=== PATIENT | male | born 1950 | race Caucasian/White ===

== ENCOUNTER → 2024-04-08 | Outpatient (CLI) | payer MEDICARE, BC, SELFPAY ==
[2024-04-08 17:10] LABS: Partial Thromboplastin Time 25.4 Seconds (22.0-36.0); Prothrombin Time 11.2 Seconds (9.0-12.2)
== END | disposition home or self-care (01) ==
LOC: COPL 15:54
PROVIDERS: PCP Internal Medicine; Referring Provider Internal Medicine; Visit Provider Internal Medicine
DX: Z01.812 Encounter for preprocedural laboratory examination (principal)
CPT/HCPCS: 36415; 85610; 85730

== ENCOUNTER → 2024-06-14 | Outpatient (CLI) | payer MEDICARE, BC, SELFPAY ==
--- NOTE | 2024-06-14 15:38 | XR_ITS ---
Examination: Knee bilateral, 4 views Technique: Knee AP, lateral, The total 4 views Date and time of exam: June 14, 2024 1602 hours INDICATIONS: Bilateral knee pain several months. 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
--- NOTE | 2024-06-14 15:38 | XR_ITS ---
Examination: Bilateral knees, standing AP single view Technique: Standing AP bilateral knees, standing single view Exam date and time: June 14, 2024 1602 hours INDICATIONS: Bilateral knee pain several months. FINDINGS: Moderate osteopenia Moderate to advanced narrowing medial joint spaces No fracture or dislocation Faint meniscus calcification IMPRESSION: Bilateral moderate to advanced narrowing medial joint spaces
--- NOTE | 2024-06-14 15:38 | XR_ITS ---
Examination: AP pelvis 2 views TECHNIQUE: AP supine pelvis hips in neutral position, AP pelvis hips abduction position INDICATIONS: Pelvic pain several months. FINDINGS: Partial visualization orthopedic hardware involving lower lumbar spine, fixation screws extending into the pelvis Moderate bilateral hip osteoarthritis No right or left hip fracture or dislocation Bones of the pelvis intact Moderate osteopenia IMPRESSION: Moderate bilateral hip osteoarthritis
== END | disposition home or self-care (01) ==
PROVIDERS: PCP Internal Medicine; Referring Provider Orthopaedic Surgery; Visit Provider Orthopaedic Surgery
DX: M17.0 Bilateral primary osteoarthritis of knee (principal); M25.862 Other specified joint disorders, left knee; M25.861 Other specified joint disorders, right knee; M16.0 Bilateral primary osteoarthritis of hip
CPT/HCPCS: 72170; 73560; 73565

== ENCOUNTER → 2024-08-05 | Outpatient (CLI) | payer MEDICARE, BC, SELFPAY ==
--- NOTE | 2024-08-05 14:07 | XR_ITS ---
Examination: Thoracic spine 3 views Technique one AP lateral coned lateral upper dorsal spine 3 views Exam date and time: August 05, 2024 1426 hrs. Comparison October 21, 2023 Indications: Back surgery done one year ago patient fell 10 days ago with injury to the back, back pain. Findings: Transpedicular lower thoracic stabilization Moderate diffuse thoracic disc narrowing No acute thoracic fracture Impression: No acute thoracic fracture
--- NOTE | 2024-08-05 14:07 | XR_ITS ---
Examination: Lumbar spine, 5 views Technique: Lumbar spine AP, lateral, coned lateral lower lumbar spine, bilateral obliques 5 views Exam date and time: August 05, 2024 1415 hrs. Indications: Back surgery one year ago, patient fell 10 days ago with injury to lower back, lower back pain. Findings: Severe osteopenia Extensive thoracolumbar sacral stabilization Disc spacer at L3-L4 No acute lumbar fracture Impression: No acute lumbar fracture
== END | disposition home or self-care (01) ==
LOC: CDIM 13:58
PROVIDERS: PCP Internal Medicine; Referring Provider Orthopaedic Surgery; Visit Provider Orthopaedic Surgery
DX: S39.92XA Unspecified injury of lower back, initial encounter (principal); S29.8XXA Other specified injuries of thorax, initial encounter; W19.XXXA Unspecified fall, initial encounter
CPT/HCPCS: 72070; 72110

== ENCOUNTER → 2024-09-10 | Outpatient (CLI) | payer MEDICARE, BC, SELFPAY ==
[2024-09-10 12:48] LABS: Collection Type, Urine Clean Catch; Squamous Epithelial Cell,Urine 0 /hpf (0-5)
[2024-09-10 13:30] LABS: Basophils % (Auto) 0 % (0-2.5); Eosinophils # (Auto) 0.1 Thou/mm3 (0.0-0.5); Eosinophils % (Auto) 2 % (0-10); Hematocrit 36.8 % (41.0-53.0); Hemoglobin 12.4 g/dL (13.5-16.0); Immature Granulocytes % (Auto) 0 % (0-0); Immature Granulocytes Auto 0.02 Thou/mm3 (0.00-0.00); Lymphocytes % (Auto) 18 % (10-50); Mean Corpuscular HGB Conc 33.7 g/dl (31.0-37.0); Mean Corpuscular Hemoglobin 30.5 pg (25.0-35.0); Mean Corpuscular Volume 91 fL (80-100); Monocytes # (Auto) 0.6 Thou/mm3 (0.0-0.8); Monocytes % (Auto) 11 % (0-12); Neutrophils # (Auto) 3.6 Thou/mm3 (1.8-7.7); Neutrophils % (Auto) 68 % (37-80); Nucleated Red Blood Cell % 0 /100 WBC (0); Platelet Count 185 Thou/mm3 (140-440); RDW Standard Deviation 49.6 fL (35.1-43.9); Red Blood Count 4.06 Miln/mm3 (4.50-5.90); White Blood Count 5.2 Thou/mm3 (3.8-10.6)
[2024-09-10 13:41] LABS: Bacteria,Urine Rare; Bilirubin,Urine Negative (Negative); Blood,Urine Negative (Negative); Clarity,Urine Clear (Clear/Hazy); Color,Urine Lt-Yellow (Lt Yel-Yel); Glucose, Urine Negative (Negative); Ketones,Urine Negative (Negative); Leukocyte Esterase,Urine Negative (Negative); Nitrite,Urine Negative (Negative); Protein,Urine Trace (Neg - Trace); RBC,Urine 2 /hpf (0-3); Specific Gravity,Urine 1.027 (1.001-1.035); Urobilinogen,Urine Negative mg/dL (0.0-1.0); WBC,Urine < 1 /hpf (0-5)
[2024-09-10 13:44] LABS: Parathyroid Hormone Intact 72.5 pg/ml (18.5-88.0)
[2024-09-10 13:45] LABS: Creatinine MALB Rnd Ur 121 mg/dL (30-125); Microalbumin Creat Ratio 16 mg/gCrea (<30); Microalbumin, Random Urine 19 mg/L (0-300)
[2024-09-10 13:46] LABS: Alanine Aminotransferase 71 U/L (10-49); Albumin, Serum 4.2 gm/dL (3.4-4.8); Albumin/Globulin Ratio 1.8 (1.2-2.2); Alkaline Phosphatase 95 U/L (46-116); Anion Gap 6 (7-16); Aspartate Amino Transferase 24 U/L (0-34); BUN/Creatinine Ratio 17 Ratio (12-20); Bilirubin,Total 0.9 mg/dL (0.3-1.2); Blood Urea Nitrogen 22 mg/dL (9-23); Carbon Dioxide 27.3 mMol/L (20.0-31.0); Cardiac Risk Estimate 3.1 RATIO (4.0-6.7); Chloride 108 mMol/L (98-107); Cholesterol 180 mg/dL (132-200); Creatinine (Component) 1.3 mg/dL (0.6-1.3); Globulin 2.4 gm/dL (2.3-3.5); Glucose 99 mg/dL (74-106); HDL Cholesterol 59 mg/dL (40-60); LDL Cholesterol,Calculated 101 mg/dL (0-130); Osmolality,Calculated 284 (275-295); Potassium 4.7 mMol/L (3.4-5.1); Sodium 141 mMol/L (136-145); Total Protein 6.6 gm/dL (5.7-8.2); Triglycerides 99 mg/dL (30-150); eGFR 58 See Note
== END | disposition home or self-care (01) ==
LOC: COPL 12:15
PROVIDERS: PCP Internal Medicine; Referring Provider Internal Medicine; Visit Provider Internal Medicine
DX: I12.9 Hypertensive chronic kidney disease with stage 1 through stage 4 chronic kidney disease, or unspecified chronic kidney disease (principal); E78.5 Hyperlipidemia, unspecified; N18.30 Chronic kidney disease, stage 3 unspecified
CPT/HCPCS: 36415; 80053; 80061; 81001; 82043; 82570; 83970; 85025

== ENCOUNTER → 2024-10-06 | Outpatient (CLI) | payer OTHER, SELFPAY ==
--- NOTE | 2024-10-06 15:09 | XR_ITS ---
Examination: Scoliosis survey 4, views. Technique: AP standing thoracic, AP standing lumbar spine, lateral thoracic lateral lumbar film 4 views Exam date and time: October 06, 2024 at 1313 hours Findings: Thoracolumbar dextroscoliosis 6 degrees Severe osteopenia Transpedicular stabilization procedure extending from the lower dorsal spine to the iliac bones with fusions involving the lower 3 lumbar vertebral bodies Alignment is satisfactory and stable compared with August 05, 2024 Mild kyphosis dorsal spine Moderate diffuse thoracic disc narrowing IMPRESSION: Extensive thoracolumbar stabilization procedure Mild kyphosis dorsal spine Moderate diffuse thoracic degenerative disc disease
== END | disposition home or self-care (01) ==
PROVIDERS: PCP Internal Medicine; Referring Provider Neurological Surgery; Visit Provider Neurological Surgery
DX: M40.299 Other kyphosis, site unspecified (principal); M51.34 Other intervertebral disc degeneration, thoracic region
CPT/HCPCS: 72082

== ENCOUNTER → 2024-11-11 | Outpatient (CLI) | payer MEDICARE, BC, SELFPAY ==
[2024-11-11 16:49] LABS: Alanine Aminotransferase 26 U/L (10-49); Albumin, Serum 4.4 gm/dL (3.4-4.8); Alkaline Phosphatase 68 U/L (46-116); Anion Gap 9 (7-16); Aspartate Amino Transferase 20 U/L (0-34); BUN/Creatinine Ratio 18 Ratio (12-20); Bilirubin,Direct 0.1 mg/dL (0.0-0.3); Bilirubin,Total 0.6 mg/dL (0.3-1.2); Blood Urea Nitrogen 25 mg/dL (9-23); Calcium 8.8 mg/dL (8.3-10.6); Carbon Dioxide 25.7 mMol/L (20.0-31.0); Chloride 104 mMol/L (98-107); Creatinine (Component) 1.4 mg/dL (0.6-1.3); Glucose 102 mg/dL (74-106); Osmolality,Calculated 281 (275-295); Phosphorous 3.8 mg/dL (2.4-5.1); Potassium 4.4 mMol/L (3.4-5.1); Sodium 139 mMol/L (136-145); Total Protein 6.5 gm/dL (5.7-8.2); eGFR 53 See Note
== END | disposition home or self-care (01) ==
LOC: COPL 15:30
PROVIDERS: PCP Internal Medicine; Referring Provider Internal Medicine; Visit Provider Internal Medicine
DX: I12.9 Hypertensive chronic kidney disease with stage 1 through stage 4 chronic kidney disease, or unspecified chronic kidney disease (principal); N18.30 Chronic kidney disease, stage 3 unspecified
CPT/HCPCS: 36415; 80048; 80069; 80076; 84100

== ENCOUNTER 2024-11-18 21:11 | Emergency (ER) | payer MEDICARE, BC, SELFPAY ==
[2024-11-18 21:59] VITALS: BP 171/93; PULSE 90; RESP 18; TEMP 36.6; O2SAT 95
--- NOTE | 2024-11-18 22:10 | XR_ITS ---
Examination: Forearm, left, 2 views. Technique: Forearm, AP, lateral 2 views Date and time of exam: November 18, 2024 1012 hours INDICATIONS: Patient fell today with injury to the elbow, elbow pain. FINDINGS: No acute fracture No dislocation No foreign body IMPRESSION: No acute fracture
--- NOTE | 2024-11-18 22:10 | XR_ITS ---
Examination: Wrist, left 3 views Technique: Wrist AP, oblique, lateral 3 views Date and time of exam: November 18, 2024 1012 hours INDICATIONS: Injury to the wrist today, wrist pain FINDINGS: On the oblique view small bone density which is dorsal to the probable distal carpal row It actually is better visualized on the forearm films IMPRESSION: Recommend CT scan wrist follow-up to exclude small chip fracture dorsal to the distal carpal row versus base of one of the metacarpals
--- NOTE | 2024-11-18 22:10 | XR_ITS ---
Examination: Left elbow 3 views Technique: Elbow AP, oblique, lateral 3 views Exam date and time: November 08, 2024 1012 hours INDICATIONS: Patient fell today with injury to the elbow, elbow pain. FINDINGS: No elbow fracture or dislocation. 12 mm posterior bony olecranon spur IMPRESSION: No elbow fracture or dislocation.
--- NOTE | 2024-11-18 22:10 | XR_ITS ---
Examination: Hand, left 3 views Technique: Hand AP, oblique, lateral 3 views Date and time of exam: November 18, 2024 1012 hours INDICATIONS: Patient fell today with injured the hand, hand pain FINDINGS: On the lateral view small chip fracture off the base of one of the metacarpals or proximal carpal row with associated soft tissue swelling Digits appear intact IMPRESSION: Recommend CT scan wrist follow-up to exclude small chip fracture off the dorsal surface either of the distal carpal row or base of the metacarpals
--- NOTE | 2024-11-18 22:55 | XR_ITS ---
Examination: CT left breast, without contrast. 2-D sagittal reconstructions. 2-D coronal reconstructions. 3-D reconstructions. Date and time of exam:08/19/2024 0021 hours INDICATIONS: Patient fell with injury to the left wrist left breast pain CTDI: vol (mGy):6.3 DLP: (mGycm):154 Technique: Multiple 1.25 mm axial sections of the left wrist without intravenous contrast have been obtained. 2-D sagittal and coronal reconstructions have been obtained. 3-D reconstructions have been obtained. Low dose protocols were performed. One or more of the following dose reduction techniques were used; automated exposure control, adjustment of the mA and/or KV according to patient size, use of iterative reconstruction technique. Findings: Acute fracture of the dorsal surface of the hamate, axial image 33, a 7 mm bone fragment which was depicted on the plain films The lunate is angulated dorsally Fracture of the triquetrum, old No scapholunate disassociation IMPRESSION: Acute fracture dorsal surface of the hamate
--- NOTE | 2024-11-18 22:55 | XR_ITS ---
Examination: CT left elbow, without contrast. 2-D sagittal reconstructions. 2-D coronal reconstructions. 3-D reconstructions. Date and time of exam:November 19, 2024 at 0017 hours INDICATIONS: Patient fell today with injury of the elbow, elbow pain CTDI: vol (mGy):4 DLP: (mGycm):73.4 Technique: Multiple 1.25 mm axial sections of the left elbow without intravenous contrast have been obtained. 2-D sagittal and coronal reconstructions have been obtained. 3-D reconstructions have been obtained. Low dose protocols were performed. One or more of the following dose reduction techniques were used; automated exposure control, adjustment of the mA and/or KV according to patient size, use of iterative reconstruction technique. Findings: [id number] diffuse elbow osteoarthritis Radial head neck proximal radius, ulna including on relapse intact Distal humerus including condyles intact IMPRESSION: No acute fracture, no dislocation
[2024-11-18] MEDS: HYDROcodone/APAP 5/325 TABLET 1 TAB PO (23:10)
[2024-11-19 01:17] VITALS: RESP 18
--- NOTE | 2024-11-19 02:23 | PRELIM_ITS ---
CT left elbow without intravenous contrast (axial sections with sagittal and coronal reformats) November 19, 2024 0017 hours Clinical History: Fall, XR neg Comparison: No prior studies available for comparison Findings: No evidence of acute fracture or dislocation is noted Mild degenerative changes are noted in the elbow joint in the form of multiple small marginal osteophytes of the distal humerus and olecranon process of ulna. The visualized joints are unremarkable. No significant joint effusion is seen. The visualized muscles are unremarkable with maintained intermuscular fat planes. Mild soft tissue swelling is noted in the posterior elbow region. The other visualized subcutaneous soft tissues are unremarkable. Impression: No evidence of acute fracture or dislocation. No evidence of elbow joint effusion. Mild osteoarthritis of the elbow joint Mild soft tissues swelling in the posterior elbow region. Report Electronically Signed By: Donnell Santa 11/19/2024 2:22:53 AM [EST]
--- NOTE | 2024-11-19 02:24 | PRELIM_ITS ---
CT left wrist without intravenous contrast (axial sections with sagittal and coronal reformats) November 19, 2024 0021 hours Clinical History: Fall, XR neg Comparison: No prior study is available for compression Findings: Acute displaced fracture of the posterior aspect of the hamate is noted Chronic fracture of the posterior aspect of the triquetrium is noted The visualized bones are intact. Several degenerative cysts are noted in the lunate and triquetrum. There is dorsal tilt of the lunate. The capitate is lined up with the lunate. Scapholunate interval is within normal limits. No significant joint effusion is seen. The visualized muscles are unremarkable with maintained intermuscular fat planes. There is mild superficial soft tissue swelling of the wrist. Impression: Acute displaced fracture of the posterior aspect of the hamate. CT features of dorsal intercalated segment instability. Other findings as described above Report Electronically Signed By: Donnell Santa 11/19/2024 2:22:57 AM [EST]
--- NOTE | 2024-11-19 04:37 | PD.EDUPEX ---
Upper Extremity Injury RME/HPI General Chief Complaint: Fall Stated Complaint: FELL, LEFT ARM INJURY Time Seen by Provider: 11/18/24 22:10 Arrival date/time: 11/18/24 21:11 74M with history of HTN and GERD presents to ED with L forearm/wrist/hamd pain after he tripped and fell. Patient denies hitting his head. Limitations: no limitations Related Data Home Medications ?Medication ?Instructions ?Recorded ?Confirmed gabapentin 600 mg tablet 600 mg PO QID PRN Pain 03/02/18 09/30/22 hydrocodone 10 mg-acetaminophen 1 tab PO QID 10/10/19 02/11/22 325 mg tablet tamsulosin 0.4 mg capsule 1 mg PO QDAY 03/21/21 09/30/22 allopurinol 100 mg tablet 100 mg PO DAILY 08/21/21 09/30/22 metoprolol succinate 50 mg 50 mg PO BID 02/11/22 09/30/22 tablet,extended release 24 hr morphine 30 mg tablet,extended 30 mg PO BID 02/11/22 09/30/22 release olmesartan 40 1 tab PO QAM 02/11/22 09/30/22 mg-hydrochlorothiazide 12.5 mg tablet pantoprazole 40 mg tablet,delayed 1 tab PO QAM 02/11/22 09/30/22 release ropinirole 0.5 mg tablet 0.5 mg PO HS 02/11/22 09/30/22 methocarbamol 500 mg tablet 500 mg PO TID 09/30/22 09/30/22 Previous Rx's ?Medication ?Instructions ?Recorded finasteride 5 mg tablet 5 mg PO QDAY #30 tabs 10/01/22 Allergies Allergy/AdvReac Type Severity Reaction Status Date / Time No Known Allergies Allergy Verified 02/11/22 20:38 Review of Systems Review of Systems Systems Reviewed: All systems reviewed, normal except as documented Constitutional Constitutional: Reports system reviewed and no additional complaints, except as documented, Denies fever(s) and Denies headache(s) ENT Ears, Nose, Mouth, and Throat: Denies disequilibrium and Denies headache(s) Cardiovascular Cardiovascular: Reports system reviewed and no additional complaints, except as documented, Denies chest pain and Denies dyspnea Respiratory Respiratory: Reports system reviewed and no additional complaints, except as documented, Denies cough and Denies dyspnea Gastrointestinal Gastrointestinal: Reports system reviewed and no additional complaints, except as documented, Denies abdominal pain, Denies nausea and Denies vomiting Musculoskeletal Musculoskeletal: Reports as per HPI and Reports arthralgias Neurologic Neurologic: Reports system reviewed and no additional complaints, except as documented, Denies confusion, Denies disequilibrium and Denies headache(s) Psychiatric Psychiatric: Denies confusion Past Medical History Past Medical History NEUROLOGIC: Negative Seizures CARDIAC: Positive Cardiac Disorders and Hypertension; Negative Congestive Heart Failure, Cardiomyopathy or Hypotension RESPIRATORY: Positive Sleep Apnea; Negative Chronic Obstructive Pulmonary Disease (COPD) or Asthma GASTROINTESTINAL: Positive Gastrointestinal Disorders, Gall Bladder Disease and Gastroesophageal Reflux Disease GENITOURINARY: Negative Genitourinary Disorders or Renal Disease MUSCULOSKELETAL: Positive Musculoskeletal Disorders, Arthritis and Degenerative Disk Disease ENDOCRINE: Negative Diabetes Mellitus Type 1 or Diabetes Mellitus Type 2 HEMATOLOGIC: Negative Sickle Cell Disease OTHER HISTORY: Positive Falls and Chicken Pox; Negative Autoimmune Disease, Down Syndrome, Developmental Delay, Blood Transfusions, Blood Transfusion Reaction, Anesthesia Reactions, Organ Transplant or Cancer Family History FAMILY HISTORY: Positive Family Cardiac Disorders; Negative Family Cancer Surgical History SURGICAL: Positive Thyroidectomy and Tonsillectomy; Negative Abdominal Surgery or Organ Transplant Social History SMOKING STATUS: Never smoker SECOND HAND EXPOSURE: No SUBSTANCE USE: marijuana (Makes cannabis bud oil at home and takes a teaspoon before bed) ED Exam General Limitations: Present no limitations General appearance: Present alert and in no apparent distress Head Head exam: Present atraumatic Eye Eye exam: Present normal appearance, PERRL and EOMI ENT ENT exam: Present normal exam, normal oropharynx and mucous membranes moist Neck Neck exam: Present normal inspection, full ROM and trachea midline Chest Chest inspection: Present normal inspection and symmetric chest wall rise Respiratory Respiratory exam: Present normal lung sounds bilaterally Cardiovascular Cardiovascular exam: Present regular rate, normal rhythm and normal heart sounds Abdominal Exam Abdominal exam: Present soft and normal bowel sounds Expanded Upper Extremity Exam Elbow exam: Present full ROM (L) Forearm/Wrist exam: Present tenderness and swelling Hand exam: Present tenderness and swelling Back Exam Back exam: Present normal inspection and full ROM Neurological Exam Neurological exam: Present alert, oriented X3 and CN II-XII intact Psychiatric Psychiatric exam: Present normal affect and normal mood Skin Skin exam: Present warm, dry, intact and normal color Course Quality Measures none Orders Category Date Time Status Splint / Immobilizer STAT Care 11/19/24 00:[address] elbow LT wo con Stat Exams 11/18/24 22:[address] wrist LT wo con Stat Exams 11/18/24 22:55 Taken XR elbow comp LT min 3V Stat Exams 11/18/24 22:10 Completed XR forearm LT 2V Stat Exams 11/18/24 22:10 Completed XR hand comp LT min 3V Stat Exams 11/18/24 22:10 Completed XR wrist comp LT min 3V Stat Exams 11/18/24 22:10 Completed HYDROcodone*/APAP 5/325 [[place] 5/325] Med 11/18/24 22:11 Discontinued 1 tab PO X1 ONE Vital Signs Vital signs: Vital Signs Temperature 98 F 11/18/24 21:59 Pulse Rate 90 11/18/24 21:59 Respiratory Rate 18 11/18/24 21:59 Blood Pressure 171/93 H 11/18/24 21:59 Pulse Oximetry (%) 95 11/18/24 21:59 Oxygen Delivery Method Room Air 11/18/24 21:59 O2 at 95% on RA and WNLs Extremity Injury MDM Narrative MDM Narrative:: 74M with history of HTN and GERD presents to ED with L forearm/wrist/hamd pain after he tripped and fell. Patient denies hitting his head. Physical exam reveals L forearm, wrist, and hand tenderness, worse at wrist. Elbow ROM intact. ROM of wrist somewhat limited. Patient is afebrile, calm, and alert. XR equivocal. Patient had CT done but did not want to wait for results since he's going to call Dr. Saavedra in AM anyway. Splint/sling done. CT revealed displaced hamate fracture. Patient data External records reviewed:: [facility] previous records Clinical information provided by:: patient Social determinants that could affect healthcare access:: none Patient has the following chronic illnesses:: HTN and GERD How is presenting disease/condition affected by chronic disease/condition?: uneffected by Evaluation data The following diagnostics were reviewed and interpreted by me:: radiology exam(s) Lab and/or radiology exams considered but not ordered:: ordered Interpretation Summary: above Medications / Prescriptions Medications or Prescriptions considered but not ordered:: ordered Medication administrations:: Medication Administration History Discontinued Medications Hydrocodone Bitart/Acetaminophen (Hydrocodone/Apap 5/325 Tablet) 1 tab PO X1 ONE Stop: 11/18/24 22:12 Last Admin: 11/18/24 23:10 Dose: 1 tab Documented By: above Consultations Consultation(s) initiated? (list below): No Diagnosis Upper Extremity Injury Differential Diagnosis: sprain and strain of wrist, fracture of wrist, finger sprain, dislocation of finger, Colles' fracture, fracture of hand, dislocation of shoulder, fracture of humerus, fracture of clavicle and other (wrist pain) Most likely diagnosis given after review of the tests above:: wrist pain Admission Indicated Admission indicated?: not indicated Admission Request Was there a request for admission?: No Disposition Plan Disposition Plan: Discharge Discharge Attestation Discharge Attestation: The patient and all family members were given an opportunity to ask questions and understood the discharge instructions. Discharge instructions specifically effects, indications for sooner follow up or return to the emergency department, and the expected course of current diagnosis. Patient condition: Stable Discharge Plan Plan Patient Disposition: HOME (Self Care) Discharge Disposition comment: Stable Prescriptions/Referrals Prescriptions/Med Rec: No Action gabapentin 600 mg Tablet 600 mg PO QID PRN (Reason: Pain) hydrocodone-acetaminophen 10-325 mg tablet 1 tab PO QID Patient Comments: TAKE 1 TABLET BY MOUTH EVERY 6 HOURS NEEDED tamsulosin 0.4 mg capsule 1 mg PO QDAY allopurinol 100 mg tablet 100 mg PO DAILY Patient Comments: TAKE 1 TABLET BY MOUTH EVERY DAY morphine 30 mg tablet extended release 30 mg PO BID Patient Comments: TAKE 1 TABLET BY MOUTH EVERY 12 HOURS FOR 30 DAYS ropinirole 0.5 mg tablet 0.5 mg PO HS Patient Comments: TAKE 1 TABLET BY MOUTH EVERY DAY AT NIGHT metoprolol succinate 50 mg tablet extended release 24 hr 50 mg PO BID Patient Comments: TAKE 1 TABLET BY MOUTH TWICE A DAY olmesartan-hydrochlorothiazide 40-12.5 mg tablet 1 tab PO QAM Patient Comments: TAKE 1 TABLET BY MOUTH EVERY DAY pantoprazole 40 mg tablet,delayed release (DR/EC) 1 tab PO QAM Patient Comments: TAKE 1 TABLET BY MOUTH EVERY DAY methocarbamol 500 mg tablet 500 mg PO TID finasteride 5 mg Tablet 5 mg PO QDAY Qty: 30 0RF Referrals: Maikel Dale MD [Primary Care Provider] - In 1 week Problem List Clinical Impression: Acute wrist pain Patient/Caregiver Discharge Instructions Education Materials: Wrist Fracture, ED Contusion, Upper Extremity Additional Instructions: Please follow-up with PCP within 24-48 hours and return immediately if symptoms worsen. Follow-up with Dr. Saavedra in AM. Print Language: Thai Stand Alone Forms: Patient Portal Info Letter PA/PROGRESSIVE CARE MANAGER Supervising Physician PA/PROGRESSIVE CARE MANAGER Supervising Physician: Dr. Barry
== END 2024-11-19 01:18 | disposition home or self-care (01) ==
PROVIDERS: Emergency Provider Emergency Medicine; PCP Internal Medicine
DX: S62.142A Displaced fracture of body of hamate [unciform] bone, left wrist, initial encounter for closed fracture (principal); W01.0XXA Fall on same level from slipping, tripping and stumbling without subsequent striking against object, initial encounter
CPT/HCPCS: 29125; 73080; 73090; 73110; 73130; 73200; 99284; A9270

== ENCOUNTER → 2025-01-13 | Outpatient (CLI) | payer MEDICARE, BC, SELFPAY ==
--- NOTE | 2025-01-13 14:28 | XR_ITS ---
Exam: MRI knee without contrast, left Date and time of exam: September 13, 2024 1513 hours INDICATIONS: Left knee pain joint locking clicking stiffness swelling beginning 6 months ago Technique: Multiple axial, coronal, and sagittal sections on the knee have been obtained. T2-Weighted sagittal, fat-suppressed images, TR 3,500, TE 62, T2 weighted coronal fat-saturated images, TR 3,500, TE 62 Proton density sagittal sections, TR 1800, TE 31. T-1 weighted coronal images, TR 524, TE 13.0 Findings: Medial meniscus anterior horn intact. Medial meniscus, body oblique linear tear communicating inferior articular surface. Posterior horn medial meniscus horizontal linear tear communicating inner margin. Lateral meniscus anterior horn is intact Lateral meniscus, body is intact Posterior horn lateral meniscus is intact Anterior cruciate ligament moderate sprain Posterior cruciate ligament appears intact. Knee effusion is small. Quadriceps and patellar tendons appear intact. There is no evidence of tendinosis. Inflammatory change or fracture of Hoffa's fat pad is not seen. Medial patellar facet demonstrates moderate thinning. Lateral patellar facet cartilage demonstrates moderate thinning. Trochlear cartilage demonstrates moderate thinning. Marrow signal adequate. Medial collateral ligament appears intact. No meniscocapsular separation is seen. Illiotibial band and fibular collateral ligament are intact. Biceps femoris tendons appear intact. Medial femoral condylar articular cartilage demonstrates moderate thinning. Lateral femoral condylar articular cartilage demonstratesmoderate thinning. Tibial plateau cartilage demonstrates moderate thinning. Impression: Tears of the body and posterior horn medial meniscus Moderate strain anterior cruciate ligament
== END | disposition home or self-care (01) ==
LOC: SMRI 14:13
PROVIDERS: PCP Internal Medicine; Referring Provider Orthopaedic Surgery; Visit Provider Orthopaedic Surgery
DX: S83.242A Other tear of medial meniscus, current injury, left knee, initial encounter (principal); X58.XXXA Exposure to other specified factors, initial encounter
CPT/HCPCS: 73721

== ENCOUNTER → 2025-01-21 | Outpatient (CLI) | payer MEDICARE, BC, SELFPAY ==
[2025-01-21 12:53] LABS: Collection Type, Urine Clean Catch
[2025-01-21 13:11] LABS: Basophils # (Auto) 0.0 Thou/mm3 (0.0-0.2); Basophils % (Auto) 0 % (0-2.5); Eosinophils # (Auto) 0.0 Thou/mm3 (0.0-0.5); Eosinophils % (Auto) 1 % (0-10); Hematocrit 38.9 % (41.0-53.0); Hemoglobin 13.3 g/dL (13.5-16.0); Immature Granulocytes Auto 0.01 Thou/mm3 (0.00-0.00); Lymphocytes # (Auto) 1.0 Thou/mm3 (1.0-4.8); Lymphocytes % (Auto) 15 % (10-50); Mean Corpuscular HGB Conc 34.2 g/dl (31.0-37.0); Mean Corpuscular Hemoglobin 33.3 pg (25.0-35.0); Mean Corpuscular Volume 98 fL (80-100); Monocytes # (Auto) 0.7 Thou/mm3 (0.0-0.8); Monocytes % (Auto) 10 % (0-12); Neutrophils # (Auto) 4.9 Thou/mm3 (1.8-7.7); Neutrophils % (Auto) 74 % (37-80); Nucleated Red Blood Cell # 0.00 Thou/mm3 (0.00-0.00); Nucleated Red Blood Cell % 0 /100 WBC (0); Platelet Count 202 Thou/mm3 (140-440); RDW Standard Deviation 44.2 fL (35.1-43.9); Red Blood Count 3.99 Miln/mm3 (4.50-5.90); White Blood Count 6.6 Thou/mm3 (3.8-10.6)
[2025-01-21 13:22] LABS: PSA Medicare Annual Scrn 2.28 ng/mL (0-4.00)
[2025-01-21 13:27] LABS: Bilirubin,Urine Negative (Negative); Blood,Urine Negative (Negative); Clarity,Urine Clear (Clear/Hazy); Color,Urine Yellow (Lt Yel-Yel); Glucose, Urine Negative (Negative); Hyaline Casts,Urine < 1 /hpf (0-1); Ketones,Urine Negative (Negative); Leukocyte Esterase,Urine Positive (Negative); Nitrite,Urine Negative (Negative); PH,Urine 5.5 (5.0-7.0); Protein,Urine Trace (Neg - Trace); RBC,Urine 2 /hpf (0-3); Specific Gravity,Urine 1.036 (1.001-1.035); Squamous Epithelial Cell,Urine < 1 /hpf (0-5); Urobilinogen,Urine Negative mg/dL (0.0-1.0); WBC,Urine 6 /hpf (0-5)
[2025-01-21 14:01] LABS: Alanine Aminotransferase 22 U/L (10-49); Albumin, Serum 4.9 gm/dL (3.4-4.8); Albumin/Globulin Ratio 1.8 (1.2-2.2); Alkaline Phosphatase 58 U/L (46-116); Anion Gap 10 (7-16); Aspartate Amino Transferase 26 U/L (0-34); BUN/Creatinine Ratio 9 Ratio (12-20); Bilirubin,Total 0.8 mg/dL (0.3-1.2); Blood Urea Nitrogen 16 mg/dL (9-23); Calcium 9.9 mg/dL (8.3-10.6); Calcium (Corrected) 9.9 mg/dL (8.5-10.1); Carbon Dioxide 24.9 mMol/L (20.0-31.0); Chloride 103 mMol/L (98-107); Creatinine (Component) 1.8 mg/dL (0.6-1.3); Globulin 2.8 gm/dL (2.3-3.5); Glucose 100 mg/dL (74-106); Osmolality,Calculated 276 (275-295); Potassium 5.0 mMol/L (3.4-5.1); Sodium 138 mMol/L (136-145); Total Protein 7.7 gm/dL (5.7-8.2); Uric Acid 8.5 mg/dL (3.7-9.2); eGFR 39 See Note
[2025-01-21 14:15] LABS: Cardiac Risk Estimate 3.9 RATIO (4.0-6.7); Cholesterol 208 mg/dL (132-200); HDL Cholesterol 54 mg/dL (40-60); LDL Cholesterol,Calculated 101 mg/dL (0-130); Triglycerides 266 mg/dL (30-150)
== END | disposition home or self-care (01) ==
LOC: COPL 11:54
PROVIDERS: PCP Internal Medicine; Referring Provider Internal Medicine; Visit Provider Internal Medicine
DX: E78.5 Hyperlipidemia, unspecified (principal); I12.9 Hypertensive chronic kidney disease with stage 1 through stage 4 chronic kidney disease, or unspecified chronic kidney disease; N18.30 Chronic kidney disease, stage 3 unspecified; Z12.5 Encounter for screening for malignant neoplasm of prostate
CPT/HCPCS: 36415; 80053; 80061; 81001; 84153; 84550; 85025; G0103

== ENCOUNTER 2025-02-08 12:21 | Emergency (ER) | payer MEDICARE, BC, SELFPAY ==
[2025-02-08 12:30] VITALS: BP 119/79; PULSE 86; RESP 24; TEMP 36.6; O2SAT 100
--- NOTE | 2025-02-08 12:52 | XR_ITS ---
Examination: CT chest with intravenous contrast 2-D sagittal and coronal reconstructions Exam date and time: February 08, 2025, 1502 hours INDICATIONS: Patient fell today with injury to the chest, upper anterior right chest pain CTDI:vol (mGy) 21.9 DLP: (mGycm) 838 Technique: Multiple axial sections of the thorax have been obtained. Sections have been obtained, 3 mm slice thickness. Mediastinal and lung density settings have been obtained. Intravenous contrast administered, 30 cc Isovue-300. 2-D sagittal, coronal images obtained. Low dose protocols were performed. One or more of the following dose reduction techniques were used; automated exposure control, adjustment of the mA and/or KV according to patient size, use of iterative reconstruction technique. Findings: 13 mm right thyroid nodule Thoracic aorta pulmonary arteries intact No hemopericardium No pneumothorax pulmonary contusion or hemothorax No visualized liver splenic or renal laceration Left parapelvic cyst, significant renal cortical thinning Visualized abdominal aorta appears intact with no free blood in the abdomen The manubrium the body of the sternum intact Prominent osteopenia Chronic osteoporotic compressions mid dorsal vertebral bodies but no acute thoracic fracture Partial visualization transpedicular thoracolumbar stabilization Acute fractures right third, fourth, fifth ribs without significant displacement IMPRESSION: Acute fractures right third, fourth, fifth ribs anteriorly Thoracic aorta pulmonary arteries intact. No hemopericardium, pneumothorax, pulmonary contusion or hemothorax
--- NOTE | 2025-02-08 12:52 | XR_ITS ---
Examination: CT brain head without contrast. 2-D sagittal coronal reconstructions Date and time of exam:February 08, 2025, 1442 hours, comparison September 30, 2022 INDICATIONS: Patient tripped and fell today with into the head, head pain CTDI: vol (mGy):59.2 DLP: (mGycm):1266 Technique: Multiple CT axial sections of the brain have been obtained, 5 mm slice thickness. Contrast has not been administered. 2-D sagittal, coronal reconstructions have been obtained Low dose protocols were performed. One or more of the following dose reduction techniques were used; automated exposure control, adjustment of the mA and/or KV according to patient size, use of iterative reconstruction technique. Findings: No significant ventricular enlargement. Intra-axial or extra-axial hemorrhage density is not seen. No mass effect or midline shift Basal cisterns are not remarkable. Fourth ventricle is midline. Cranial vault intact. Impression: Negative for acute hemorrhage, mass effect or midline shift Please see the CT maxillofacial report today
--- NOTE | 2025-02-08 12:52 | XR_ITS ---
Examination: CT maxillofacial, without intravenous contrast. 2-D sagittal reconstructions. 3-D reconstructions. Date and time of exam:February 08, 2025, 1442 hours INDICATIONS: Tripped and fell yesterday with injury to the right eye, pain and swelling about the right eye right periorbital ecchymoses CTDI: vol (mGy):25.1 DLP: (mGycm):503 Technique: Multiple axial images of maxillofacial region, 3.0 mm slice thickness. 2-D sagittal and coronal reconstructions. 3-D reconstructions. Low dose protocols were performed. One or more of the following dose reduction techniques were used; automated exposure control, adjustment of the mA and/or KV according to patient size, use of iterative reconstruction technique. Findings: Soft tissue swelling adjacent to the right frontal bone and anterior and lateral to the right optic globe Frontal bone frontal sinuses intact Large blowout fracture right inferior orbital rim, downward herniation of the right inferior rectus muscle, coronal image 44, no definite entrapment of the inferior rectus muscle Small fractures medial right orbital wall axial image 81 with likely ethmoid hemosinus Maxilla mandible intact The optic globes themselves appear intact as well as optic nerves. No retro-orbital contusion No nasal bone fracture No depression zygomatic arches Lateral and anterior graves of the maxillary antra intact IMPRESSION: Large blowout fracture right inferior orbital rim, downward herniation of the right inferior rectus muscle Smaller fractures medial right orbital wall with likely ethmoid hemosinus
[2025-02-08 13:17] LABS: Basophils # (Auto) 0.0 Thou/mm3 (0.0-0.2); Basophils % (Auto) 0 % (0-2.5); Eosinophils # (Auto) 0.1 Thou/mm3 (0.0-0.5); Eosinophils % (Auto) 1 % (0-10); Hematocrit 37.6 % (41.0-53.0); Hemoglobin 13.0 g/dL (13.5-16.0); Immature Granulocytes Auto 0.03 Thou/mm3 (0.00-0.00); Lymphocytes # (Auto) 0.8 Thou/mm3 (1.0-4.8); Lymphocytes % (Auto) 9 % (10-50); Mean Corpuscular HGB Conc 34.6 g/dl (31.0-37.0); Mean Corpuscular Hemoglobin 33.1 pg (25.0-35.0); Mean Corpuscular Volume 96 fL (80-100); Monocytes # (Auto) 0.8 Thou/mm3 (0.0-0.8); Monocytes % (Auto) 9 % (0-12); Neutrophils # (Auto) 7.3 Thou/mm3 (1.8-7.7); Neutrophils % (Auto) 82 % (37-80); Nucleated Red Blood Cell # 0.00 Thou/mm3 (0.00-0.00); Nucleated Red Blood Cell % 0 /100 WBC (0); Platelet Count 188 Thou/mm3 (140-440); RDW Standard Deviation 44.8 fL (35.1-43.9); Red Blood Count 3.93 Miln/mm3 (4.50-5.90); White Blood Count 9.0 Thou/mm3 (3.8-10.6)
--- NOTE | 2025-02-08 13:23 | PD.EDCHEST ---
ED Chest Pain RME/HPI General Chief Complaint: Fall Stated Complaint: R) SIDE CHEST PAIN FROM FALL, HIT HEAD, SOB Time Seen by Provider: 02/08/25 12:32 Arrival date/time: 02/08/25 12:21 RME / HPI RME / HPI narrative: 75-year-old male with history of multiple L-spine surgeries with hardware placement presents to the emergency department after a ground-level fall this morning. Patient states he was fixing something near his [place]. He states he was walking back to the house when he slipped, fell and landed on his right face and right anterior chest. He states he is now having fairly severe right anterior chest pain which is worse with deep breaths, mild dyspnea, he has right sided facial pain. No visual disturbances or blurry vision. No loss of consciousness. No neck pain, focal neurologic complaints or headache. Related Data Home Medications ?Medication ?Instructions ?Recorded ?Confirmed gabapentin 600 mg tablet 600 mg PO QID PRN Pain 03/02/18 09/30/22 hydrocodone 10 mg-acetaminophen 1 tab PO QID 10/10/19 02/11/22 325 mg tablet tamsulosin 0.4 mg capsule 1 mg PO QDAY 03/21/21 09/30/22 allopurinol 100 mg tablet 100 mg PO DAILY 08/21/21 09/30/22 metoprolol succinate 50 mg 50 mg PO BID 02/11/22 09/30/22 tablet,extended release 24 hr morphine 30 mg tablet,extended 30 mg PO BID 02/11/22 09/30/22 release olmesartan 40 1 tab PO QAM 02/11/22 09/30/22 mg-hydrochlorothiazide 12.5 mg tablet pantoprazole 40 mg tablet,delayed 1 tab PO QAM 02/11/22 09/30/22 release ropinirole 0.5 mg tablet 0.5 mg PO HS 02/11/22 09/30/22 methocarbamol 500 mg tablet 500 mg PO TID 09/30/22 09/30/22 Previous Rx's ?Medication ?Instructions ?Recorded finasteride 5 mg tablet 5 mg PO QDAY #30 tabs 10/01/22 acetaminophen 325 mg capsule 650 mg (2 x 325 mg) PO Q6H PRN 02/08/25 pain #30 caps hydrocodone 5 mg-acetaminophen 325 1 tab PO BID PRN pain #10 tabs 02/08/25 mg tablet ibuprofen 600 mg tablet 600 mg PO Q6H PRN pain #20 tabs 02/08/25 Allergies Allergy/AdvReac Type Severity Reaction Status Date / Time No Known Allergies Allergy Verified 02/08/25 12:25 Review of Systems Review of Systems Systems Reviewed: All systems reviewed, normal except as documented Past Medical History Past Medical History CARDIAC: Positive Cardiac Disorders, Cardiac Arrhythmia and Hypertension RESPIRATORY: Positive Sleep Apnea GASTROINTESTINAL: Positive Gastrointestinal Disorders, Gall Bladder Disease and Gastroesophageal Reflux Disease MUSCULOSKELETAL: Positive Musculoskeletal Disorders, Arthritis, Degenerative Disk Disease, Scoliosis, Degenerative Joint Disease and Osteomyelitis OTHER HISTORY: Positive Falls and Chicken Pox Family History FAMILY HISTORY: Positive Family Cardiac Disorders Surgical History SURGICAL: Positive Thyroidectomy and Tonsillectomy Social History SMOKING STATUS: Never smoker SECOND HAND EXPOSURE: No SUBSTANCE USE: marijuana (Makes cannabis bud oil at home and takes a teaspoon before bed) ED Exam Narrative Physical exam: See MDM Course Quality Measures none Orders Category Date Time Status CT Screening NOW Care 02/08/25 12:[address] chest w con Stat Exams 02/08/25 12:[address] facial bones wo con Stat Exams 02/08/25 12:[address] head/brain wo con Stat Exams 02/08/25 12:52 Completed CBC Stat Lab 02/08/25 13:10 Completed CMP [Comprehensive Metabolic Panel] Stat Lab 02/08/25 13:10 Completed Lipase Stat Lab 02/08/25 13:10 Completed Acetaminophen Ivpb [Ofirmev Inj] Med 02/08/25 12:57 Discontinued 1,000 mg in 100 ml IV NOW HYDROmorphone INJ [Dilaudid Inj] Med 02/08/25 13:00 Active 0.5 mg IVP Q30MIN PRN Ondansetron Inj [Zofran Inj] Med 02/08/25 12:56 Discontinued 4 mg IVP X1 ONE Vital Signs Vital signs: Vital Signs Temperature 97.8 F 02/08/25 12:30 Pulse Rate 86 02/08/25 12:30 Respiratory Rate 24 H 02/08/25 12:30 Blood Pressure 119/79 02/08/25 12:30 Pulse Oximetry (%) 100 02/08/25 12:30 Oxygen Delivery Method Room Air 02/08/25 12:30 Chest Pain MDM Narrative MDM Narrative:: This section includes all my notes and documentations, including HPI, PE, and ED course. Robin Solis MD ? HPI: 75-year-old male with history of multiple L-spine surgeries with hardware placement presents to the emergency department after a ground-level fall this morning. Patient states he was [place] something near his [place]. He states he was walking back to the house when he slipped, fell and landed on his right face and right anterior chest. He states he is now having fairly severe right anterior chest pain which is worse with deep breaths, mild dyspnea, he has right sided facial pain. No visual disturbances or blurry vision. No loss of consciousness. No neck pain, focal neurologic complaints or headache. Plan is to order CT head Noncon, CT facial bones Noncon, CT C-spine Noncon as well as a CT of the chest with contrast. Will order blood work. I have ordered analgesics for the patient and will monitor him closely ROS: All negative except as documented in HPI. ? PE: GENERAL APPEARANCE:? alert and oriented x 4, well-developed, well-nourished VITALS: All vitals were reviewed and the pulse ox is 100% on room air, which is normal according to my interpretation. Mild tachypnea HEENT: Normocephalic, right periorbital ecchymosis.; pupils equal, round, reactive to light; EOMI; visual wilson are intact, no chemosis or hyphema. No scleral injection; mucous membranes pink, moist; oropharynx clear NECK: Supple CHEST: Tenderness to palpation of the right upper anterior chest wall. LUNGS: CTABL; no wheezes, no rales, no rhonchi HEART: Regular rate, regular rhythm; normal S1, S2; no murmurs ABDOMEN: non distended; normal BS;? soft, no tenderness, no guarding, no rebound; no masses, no organomegaly, no hernia?? BACK:? no CVA tenderness, no midline c-spine tenderness EXTREMITIES:? atraumatic; no edema NEUROLOGIC: awake; alert and oriented x4; cranial nerves II-XII grossly intact; no focal sensory or motor deficits PSYCHIATRIC:? appropriate mood and affect SKIN: warm, dry, normal color; no rashes I reviewed all diagnostic test results: My review of the CT head/brain wo con report is: Negative for acute hemorrhage, mass effect or midline shift My review of the facial bones wo con report is: Large blowout fracture right inferior orbital rim My review of the CT chest w con report is: Acute fractures right third, fourth, fifth ribs anteriorly Blood tests: ? At this point, diagnoses include: Fracture of rib, Orbital floor closed fracture ? Treatment here included: Zofran, 0.5mg Dilaudid x2, 1,000mg Tylenol ? Significant improvement noted. ? Recommended outpatient care. ? Based on my best medical judgment, made decision no further evaluation or treatment indicated at this time. Patient understands and agrees to the customized discharge instructions and printed, see below. ? Discharge instructions from Dr. Solis: Today you are seen in the emergency department after you fell, striking your right face and your right chest on the ground. We performed a CT scan of your head and your neck bones. Those are completely normal. The CT of your face shows that you have a right sided inferior orbital wall fracture. Some folks who have this kind of fracture wind up with entrapment of one of the muscles and they have difficulty with movement of that eye. You do not have these problems so you have no entrapment. The CT of your chest showed that you have 3 broken ribs on the right. There are several really important things that you need to remember. One is that you need to follow-up with your primary care doctor within the next several days so that he can refer you to an furrier shop supervisor. There are prescriptions waiting for you at your pharmacy. These are for pain please take these as directed. You should use the incentive spirometer that we gave you at least 3 times a day. This is to prevent pneumonia. If you do develop any cough or fevers or any other medical problems you should return to the ER right away and we will help you. Otherwise you should follow-up with your primary care doctor within the next several days. Patient data External records reviewed:: [facility] previous records Clinical information provided by:: patient Social determinants that could affect healthcare access:: none Patient has the following chronic illnesses:: hypertension, restless leg syndrome, GERD, esophageal stricture status post dilation, gastritis, chronic back pain, multiple L-spine surgeries How is presenting disease/condition affected by chronic disease/condition?: exacerbated by Evaluation data The following diagnostics were reviewed and interpreted by me:: lab results and radiology exam(s) Lab and/or radiology exams considered but not ordered:: None Interpretation Summary: See [facility] Medications / Prescriptions Medications or Prescriptions considered but not ordered:: None Medication administrations:: Medication Administration History Hydromorphone HCl (Hydromorphone Inj 2 Mg/Ml Vial) 0.5 mg IVP Q30MIN PRN PRN Reason: PAIN Last Admin: 02/08/25 15:51 Dose: 0.5 mg Documented By: Admin: 02/08/25 13:43 Dose: 0.5 mg Documented By: ROMULO Discontinued Medications Acetaminophen (Ofirmev Inj) 1,000 mg in 100 mls @ 250 mls/hr IV NOW ONE Stop: 02/08/25 13:20 Last Infusion: 02/08/25 14:00 Dose: Infused Documented By: Admin: 02/08/25 13:43 Dose: 250 mls/hr Documented By: ROMULO Ondansetron HCl (Ondansetron Inj 2 Mg/Ml Inj 2 Ml) 4 mg IVP X1 ONE; Protocol Stop: 02/08/25 12:57 Last Admin: 02/08/25 13:42 Dose: 4 mg Documented By: ORMULO See MDM Consultations Consultation(s) initiated? (list below): No Diagnosis Chest Pain Differential Diagnosis: pneumothorax, stable angina, atypical chest pain, st elevation myocardial infarction, costochondritis, chest pain and biliary colic Most likely diagnosis given after review of the tests above:: Fracture of rib Orbital floor closed fracture Admission Indicated Admission indicated?: not indicated Admission Request Was there a request for admission?: No Disposition Plan Disposition Plan: Discharge Discharge Attestation Discharge Attestation: The patient and all family members were given an opportunity to ask questions and understood the discharge instructions. Discharge instructions specifically effects, indications for sooner follow up or return to the emergency department, and the expected course of current diagnosis. Patient condition: Stable Discharge Plan Plan Patient Disposition: HOME (Self Care) Discharge Disposition comment: Stable for discharge home Patient condition on transfer: Stable Prescriptions/Referrals Prescriptions/Med Rec: New ibuprofen 600 mg tablet 600 mg PO Q6H PRN (Reason: pain) Qty: 20 0RF acetaminophen 325 mg capsule 650 mg PO Q6H PRN (Reason: pain) Qty: 30 0RF hydrocodone-acetaminophen 5-325 mg tablet 1 tab PO BID MDD 10mg PRN (Reason: pain) Qty: 10 0RF No Action gabapentin 600 mg Tablet 600 mg PO QID PRN (Reason: Pain) hydrocodone-acetaminophen 10-325 mg tablet 1 tab PO QID Patient Comments: TAKE 1 TABLET BY MOUTH EVERY 6 HOURS NEEDED tamsulosin 0.4 mg capsule 1 mg PO QDAY allopurinol 100 mg tablet 100 mg PO DAILY Patient Comments: TAKE 1 TABLET BY MOUTH EVERY DAY morphine 30 mg tablet extended release 30 mg PO BID Patient Comments: TAKE 1 TABLET BY MOUTH EVERY 12 HOURS FOR 30 DAYS ropinirole 0.5 mg tablet 0.5 mg PO HS Patient Comments: TAKE 1 TABLET BY MOUTH EVERY DAY AT NIGHT metoprolol succinate 50 mg tablet extended release 24 hr 50 mg PO BID Patient Comments: TAKE 1 TABLET BY MOUTH TWICE A DAY olmesartan-hydrochlorothiazide 40-12.5 mg tablet 1 tab PO QAM Patient Comments: TAKE 1 TABLET BY MOUTH EVERY DAY pantoprazole 40 mg tablet,delayed release (DR/EC) 1 tab PO QAM Patient Comments: TAKE 1 TABLET BY MOUTH EVERY DAY methocarbamol 500 mg tablet 500 mg PO TID finasteride 5 mg Tablet 5 mg PO QDAY Qty: 30 0RF Referrals: [facility] [Provider Group] - In 1 week Problem List Clinical Impression: Fracture of rib, Orbital floor (blow-out) closed fracture Patient/Caregiver Discharge Instructions Discharge Activity: activity as tolerated Diet Instructions: No restrictions Education Materials: Facial Fracture, How Bones Heal, ED Rib Fracture Additional Instructions: Today you are seen in the emergency department after you fell, striking your right face and your right chest on the ground. We performed a CT scan of your head and your neck bones. Those are completely normal. The CT of your face shows that you have a right sided inferior orbital wall fracture. Some folks who have this kind of fracture wind up with entrapment of one of the muscles and they have difficulty with movement of that eye. You do not have these problems so you have no entrapment. The CT of your chest showed that you have 3 broken ribs on the right. There are several really important things that you need to remember. One is that you need to follow-up with your primary care doctor within the next several days so that he can refer you to an furrier shop supervisor. There are prescriptions waiting for you at your pharmacy. These are for pain please take these as directed. You should use the incentive spirometer that we gave you at least 3 times a day. This is to prevent pneumonia. If you do develop any cough or fevers or any other medical problems you should return to the ER right away and we will help you. Otherwise you should follow-up with your primary care doctor within the next several days. Print Language: Bengali Stand Alone Forms: [employer] Award Info., Patient Portal Info Letter
[2025-02-08 13:37] LABS: Alanine Aminotransferase 19 U/L (10-49); Albumin, Serum 4.3 gm/dL (3.4-4.8); Albumin/Globulin Ratio 1.9 (1.2-2.2); Alkaline Phosphatase 53 U/L (46-116); Anion Gap 9 (7-16); Aspartate Amino Transferase 19 U/L (0-34); BUN/Creatinine Ratio 15 Ratio (12-20); Bilirubin,Total 0.9 mg/dL (0.3-1.2); Blood Urea Nitrogen 25 mg/dL (9-23); Calcium 9.5 mg/dL (8.3-10.6); Calcium (Corrected) 9.5 mg/dL (8.5-10.1); Carbon Dioxide 26.1 mMol/L (20.0-31.0); Chloride 102 mMol/L (98-107); Creatinine (Component) 1.7 mg/dL (0.6-1.3); Estimated Creatinine Clearance 49.1 mL/min (>60); Globulin 2.3 gm/dL (2.3-3.5); Glucose 97 mg/dL (74-106); Lipase 35 U/L (12-53); Osmolality,Calculated 278 (275-295); Potassium 4.8 mMol/L (3.4-5.1); Sodium 137 mMol/L (136-145); Total Protein 6.6 gm/dL (5.7-8.2); eGFR 42 See Note
[2025-02-08] MEDS: ONDANSETRON INJ 2 MG/ML INJ 2 ML 4 MG IVP (13:42)
[2025-02-08] MEDS: ACETAMINOPHEN IVPB 1,000 MG/100 ML VIAL 250 MG IV (13:43)
[2025-02-08] MEDS: HYDROmorphone INJ 2 MG/ML VIAL 0.5 MG IVP ×2 (13:43→15:51)
[2025-02-08 15:54] VITALS: BP 124/89; PULSE 65; RESP 16; O2SAT 21
== END 2025-02-08 17:00 | disposition home or self-care (01) ==
PROVIDERS: Emergency Provider Emergency Medicine
DX: S22.41XA Multiple fractures of ribs, right side, initial encounter for closed fracture (principal); S02.31XA Fracture of orbital floor, right side, initial encounter for closed fracture; W01.0XXA Fall on same level from slipping, tripping and stumbling without subsequent striking against object, initial encounter; Y93.01 Activity, walking, marching and hiking
CPT/HCPCS: 36415; 70450; 70486; 71260; 80053; 83690; 85025; 96365; 96375; 99283; A4649; J0131; J1171; J2405; Q9967

== ENCOUNTER 2025-02-17 11:15 | Outpatient (AMB) | payer MEDICARE, BC, SELFPAY ==
[2025-02-17 11:30] VITALS: BP 158/94; PULSE 94; RESP 18; TEMP 36.2; O2SAT 94; BMI 32.4
--- NOTE | 2025-02-17 11:30 | ORTHONT_ITS ---
Vital signs 02/17/25 11:30 Height 1.83 m Height Method Measured Weight 108.465 kg Weight Measurement Method Standing Scale BMI 32.4 BP 158/94 H Blood Pressure Source Automatic Cuff Blood Pressure Location Left Upper Arm Position Sitting Respiration 18 Pulse 94 Pulse Source Monitor Temp 97.2 F Temp Source Temporal Artery Scan Pulse Oximetry (%) 94 L Oxygen Delivery Method Room Air Med/Allergies Allergies & Medications Allergies No Known Allergies Allergy (Verified 02/17/25 11:31) Medication Reconciliation finasteride 5 mg tablet 5 mg PO QDAY #30 tabs 10/01/22 [Rx Confirmed 02/17/25] amitriptyline 50 mg tablet 50 mg PO QDAY 02/17/25 [History Confirmed 02/17/25] azilsartan medoxomil 40 mg-chlorthalidone 12.5 mg tablet (Edarbyclor) 1 tab PO QDAY 02/17/25 [History Confirmed 02/17/25] clonidine 0.3 mg/24 hr weekly transdermal patch 1 patch transdermal QWEEK 02/17/25 [History Confirmed 02/17/25] hydrocodone 10 mg-acetaminophen 325 mg tablet 1 tab PO Q6H PRN 02/17/25 [History Confirmed 02/17/25] methocarbamol 500 mg tablet 500 mg PO TID 02/17/25 [History Confirmed 02/17/25] nicardipine 20 mg capsule 20 mg PO TID 02/17/25 [History Confirmed 02/17/25] pantoprazole 40 mg tablet,delayed release (Protonix) 40 mg PO QDAY 02/17/25 [History Confirmed 02/17/25] pregabalin 75 mg capsule (Lyrica) 75 mg PO TID 02/17/25 [History Confirmed 02/17/25] ropinirole 0.5 mg tablet 0.5 mg PO QHS 02/17/25 [History Confirmed 02/17/25] tamsulosin 0.4 mg capsule (Flomax) 0.4 mg PO QDAY 02/17/25 [History Confirmed 02/17/25] Exam Exam Patient is in no acute distress and is cooperative with the examination today. Breathing is nonlabored. Patient has a normal mood and affect. Bilateral extremities were evaluated and demonstrates sensation intact to light touch. Palpable pedal pulses are present. No significant edema is present. Bilateral hips were examined. The patient has no pain with log roll of the hips. Internal rotation to 30 degrees and external rotation to 30 degrees is painless. Negative FADIR. Right knee was examined today. The right knee is in reasonable alignment. Range of motion from 0-120 degrees. Knee is stable to varus and valgus as well as AP translation with <5mm. Patient has a negative McMurrays. There is no pain with patellofemoral compression and no crepitus noted. The knee is nontender to palpation. Left knee was examined today. The left knee is in varus alignment. Range of motion from 0-115 degrees. Knee is stable to varus and valgus as well as AP translation with <5mm. Patient has a negative McMurrays. There is no pain with patellofemoral compression and no crepitus noted. The knee is tender to palpation medially. X-rays demonstrate complete joint space narrowing in the medial joint space. Varus deformity is present Assessment and Plan Problem List (1) Arthritis of left knee: Status: Acute Plan: Patient is a pleasant 75-year-old male with a left knee pain and left knee arthritis. He has significant medical issues. He had a prior DVT in the past and had a IVC filter placed. We will need to get a cardiac and medical clearance before proceeding with surgery. The pain is affecting his quality life and happiness. We discussed injections but he has failed conservative treatments and multiple ones in the past. He would like to consider a left total knee replacement. The nature and purpose of the total knee replacement, alternative method(s) of treatment, the material risks involved, and the possibility of complications were fully explained to the patient. The patient does NOT have any of the following contraindications to TKA: - Active infection of the knee joint, OR - Active systemic bacteremia, OR - Active skin infection or open wound at surgical site, OR - Neuropathic arthritis, OR - Severe, rapidly progressive neurological disease, OR - Severe medical condition that makes risks of surgery outweigh the potential benefit The patient was told the most common risks and complications associated with a total knee replacement include, but are not limited to: blood clots in the leg, fatal pulmonary embolism, dislocation of the prosthesis, intraoperative and postoperative fractures of the femur or tibia, infection, failure of the prosthesis or grafting materials, complications from anesthesia, reactions to blood transfusions, postoperative leg length inequality, instability of the knee replacement, nerve damage or injury, vascular injury, delayed wound healing, infection, other injury or even . In addition, there are risks associated with anesthesia given during this operation. Also, the patient was told that after undergoing a total knee replacement there may still be persistent pain or disability. The patient was informed that the success of this operation in part depends upon the mechanical devices which are going to be implanted and that these devices can fail or malfunction, and may need to be repaired or replaced and there are no guarantees as to the longevity of this device or its parts and that it or its parts could fail prematurely. The patient was also notified that during the course of surgery, there may be a need to use bone graft from donors, and that any bone graft used will be carefully screened for communicable diseases, including AIDS, hepatitis, Jesse-Creutzfeldt, or other diseases, but despite the screening procedures, there is a small chance that they could contract one of these diseases. Finally, the patient was asked to follow completely and fully with all advice and recommended treatments, and that recovery and ultimate outcome are affected by their compliance with recommended treatment. We discussed the risks, benefits and treatment alternatives, and the patient is interested in proceeding with surgery. We will try to set this up as expeditiously as possible. Advanced Care Planning Discussion Advance care planning discussed with:: patient Office Procedures GNS Level of Care Nursing/Assessment Patient Status: Initial/New Patient Nursing Assessment/Reassesment: Medication Reconciliation, Update PMH in EMR and Vital Signs Coordination of Care: Complex Care and Chronic Disease 1-5, Education Complex Pt/Fam, Consent,records obtained, informed consent, Lab and Imaging orders, Results/Orders obtained and Staff clarify orders New Patient Charge New Patient Point Assignment: 1109 New Patient Point Charge: CUSTOMER SERVICE SALES ASSOCIATE Level 3 ([id number]) MA Intake Visit Data Collection New Patient or Established: New Patient (never been to [facility]) Reason for Visit:: LEFT KNEE PAIN Seen by Clinical Staff ONLY (RN/MA): No Amalgamator Required: No PCP or OBGYN visit in last 3 months: Yes Hx Now: No Do You Feel Safe at Home: Yes Authorities Contacted: N/A Questionairres Past Medical History Past Medical History Have you ever been diagnosed with any of the following: Neurological Problems Seizures: No Cardiology Problems Cardiac Arrhythmia: Yes Congestive Heart Failure: No Cardiomyopathy: No Hypertension: Yes Hypotension: No Respiratory Problems Chronic Obstructive Pulmonary Disease (COPD): No Asthma: No Sleep Apnea: Yes Stomache/Intestinal Problems Gall Bladder Disease: Yes Gastroesophageal Reflux Disease: Yes Genital/Urinary Problems Renal Disease: No Musculoskeletal Problems Arthritis: Yes Degenerative Disk Disease: Yes Scoliosis: Yes Degenerative Joint Disease: Yes Osteomyelitis: Yes Endocrine Problems Diabetes Mellitus Type 1: No Diabetes Mellitus Type 2: No Blood Problems Sickle Cell Disease: No Other Problems Down Syndrome: No Developmental Delay: No Falls: Yes Blood Transfusions: No Blood Transfusion Reaction: No Anesthesia Reactions: No Organ Transplant: No Chicken Pox: Yes Cancer: No Surgical History Thyroidectomy: Yes Subjective Visit Visit for: new patient and knee Immunization / Flu Flu Vaccine in the Last 12 Months: Yes Flu Vaccine Exclusion Criteria: Already Received History of Present Illness Chief complaint: LEFT KNEE PAIN Date of injury / onset of symptoms: 1 YEAR Dmitry is a pleasant 74-year-old male with arthritis. He has had multiple spine surgeries in the past and has chronic back pain. His left knee pain has been bothering him for over 5 years and he reports that he has had over 8 injections with ironic acid and cortisone. He is also tried anti-inflammatories and physical therapy. 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
== END 2025-02-17 11:49 | disposition home or self-care (01) ==
PROVIDERS: PCP Internal Medicine; Referring Provider Orthopaedic Surgery; Supervising Provider Orthopaedic Surgery Adult Reconstructive Orthopaedic Surgery; Visit Provider Orthopaedic Surgery Adult Reconstructive Orthopaedic Surgery
DX: M17.12 Unilateral primary osteoarthritis, left knee (principal); M25.562 Pain in left knee; Z86.718 Personal history of other venous thrombosis and embolism; I10 Essential (primary) hypertension; K21.9 Gastro-esophageal reflux disease without esophagitis
CPT/HCPCS: 99203; G0463

== ENCOUNTER 2025-04-14 08:23 | Outpatient (AMB) | payer MEDICARE, BC, SELFPAY ==
--- NOTE | 2025-04-14 08:48 | PD.ORTHCLVIS ---
Vital signs 04/14/25 08:59 Height 1.83 m Height Method Measured Weight 103.958 kg Weight Measurement Method Standing Scale BMI 31.0 BP 150/96 H Blood Pressure Source Automatic Cuff Blood Pressure Location Left Upper Arm Position Sitting Respiration 20 Pulse 116 H Pulse Source Monitor Temp 97.7 F Temp Source Temporal Artery Scan Pulse Oximetry (%) 95 Oxygen Delivery Method Room Air Med/Allergies Allergies & Medications Allergies No Known Allergies Allergy (Verified 04/14/25 09:00) Medication Reconciliation finasteride 5 mg tablet 5 mg PO QDAY #30 tabs 10/01/22 [Rx Confirmed 04/14/25] amitriptyline 50 mg tablet 50 mg PO QDAY 02/17/25 [History Confirmed 04/14/25] azilsartan medoxomil 40 mg-chlorthalidone 12.5 mg tablet (Edarbyclor) 1 tab PO QDAY 02/17/25 [History Confirmed 04/14/25] clonidine 0.3 mg/24 hr weekly transdermal patch 1 patch transdermal QWEEK 02/17/25 [History Confirmed 04/14/25] hydrocodone 10 mg-acetaminophen 325 mg tablet 1 tab PO Q6H PRN 02/17/25 [History Confirmed 04/14/25] methocarbamol 500 mg tablet 500 mg PO TID 02/17/25 [History Confirmed 04/14/25] nicardipine 20 mg capsule 20 mg PO TID 02/17/25 [History Confirmed 04/14/25] pantoprazole 40 mg tablet,delayed release (Protonix) 40 mg PO QDAY 02/17/25 [History Confirmed 04/14/25] pregabalin 75 mg capsule (Lyrica) 75 mg PO TID 02/17/25 [History Confirmed 04/14/25] ropinirole 0.5 mg tablet 0.5 mg PO QHS 02/17/25 [History Confirmed 04/14/25] tamsulosin 0.4 mg capsule (Flomax) 0.4 mg PO QDAY 02/17/25 [History Confirmed 04/14/25] Exam Exam Patient is in no acute distress and is cooperative with the examination today. Breathing is nonlabored. Patient has a normal mood and affect. Bilateral extremities were evaluated and demonstrates sensation intact to light touch. Palpable pedal pulses are present. No significant edema is present. Bilateral hips were examined. The patient has no pain with log roll of the hips. Internal rotation to 30 degrees and external rotation to 30 degrees is painless. Negative FADIR. Right knee was examined today. The right knee is in reasonable alignment. Range of motion from 0-120 degrees. Knee is stable to varus and valgus as well as AP translation with <5mm. Patient has a negative McMurrays. There is no pain with patellofemoral compression and no crepitus noted. The knee is nontender to palpation. Left knee was examined today. The left knee is in varus alignment. Range of motion from 0-115 degrees. Knee is stable to varus and valgus as well as AP translation with <5mm. Patient has a negative McMurrays. There is no pain with patellofemoral compression and no crepitus noted. The knee is tender to palpation medially. X-rays demonstrate complete joint space narrowing in the medial joint space. Varus deformity is present Assessment and Plan Problem List (1) Arthritis of left knee: Status: Acute Plan: Patient is a pleasant 75-year-old male with a left knee pain and left knee arthritis. He has significant medical issues. He had a prior DVT in the past and had a IVC filter placed and subsequently removed. We will need to get a cardiac and medical clearance before proceeding with surgery. He reports that he has a cardiac clearance from Dr. Sydnee Stubbs. I particularly would like to know what blood thinner to put him on after surgery. The pain is affecting his quality life and happiness. We discussed injections but he has failed conservative treatments and multiple ones in the past. He would like to consider a left total knee replacement. The nature and purpose of the total knee replacement, alternative method(s) of treatment, the material risks involved, and the possibility of complications were fully explained to the patient. The patient does NOT have any of the following contraindications to TKA: - Active infection of the knee joint, OR - Active systemic bacteremia, OR - Active skin infection or open wound at surgical site, OR - Neuropathic arthritis, OR - Severe, rapidly progressive neurological disease, OR - Severe medical condition that makes risks of surgery outweigh the potential benefit The patient was told the most common risks and complications associated with a total knee replacement include, but are not limited to: blood clots in the leg, fatal pulmonary embolism, dislocation of the prosthesis, intraoperative and postoperative fractures of the femur or tibia, infection, failure of the prosthesis or grafting materials, complications from anesthesia, reactions to blood transfusions, postoperative leg length inequality, instability of the knee replacement, nerve damage or injury, vascular injury, delayed wound healing, infection, other injury or even . In addition, there are risks associated with anesthesia given during this operation. Also, the patient was told that after undergoing a total knee replacement there may still be persistent pain or disability. The patient was informed that the success of this operation in part depends upon the mechanical devices which are going to be implanted and that these devices can fail or malfunction, and may need to be repaired or replaced and there are no guarantees as to the longevity of this device or its parts and that it or its parts could fail prematurely. The patient was also notified that during the course of surgery, there may be a need to use bone graft from donors, and that any bone graft used will be carefully screened for communicable diseases, including AIDS, hepatitis, Jesse-Creutzfeldt, or other diseases, but despite the screening procedures, there is a small chance that they could contract one of these diseases. Finally, the patient was asked to follow completely and fully with all advice and recommended treatments, and that recovery and ultimate outcome are affected by their compliance with recommended treatment. We discussed the risks, benefits and treatment alternatives, and the patient is interested in proceeding with surgery. We will try to set this up as expeditiously as possible. Advanced Care Planning Discussion Advance care planning discussed with:: patient Office Procedures GNS Level of Care Nursing/Assessment Patient Status: Established Patient Nursing Assessment/Reassesment: Medication Reconciliation, Update PMH in EMR and Vital Signs Coordination of Care: Complex Care and Chronic Disease 1-5, Education Complex Pt/Fam, Consent,records obtained, informed consent, Results/Orders obtained and Staff clarify orders Established Patient Charge Established Patient Point Assignment: 95 Established Patient Point Charge: Level 3 (80-115) MA Intake Visit Data Collection New Patient or Established: Established Patient (seen at [facility] within 3 years) Reason for Visit:: REQUESTING KNEE INJECTION Seen by Clinical Staff ONLY (RN/MA): No Parking Lot Manager Required: No PCP or OBGYN visit in last 3 months: Yes Hx Now: No Do You Feel Safe at Home: Yes Authorities Contacted: N/A Questionairres Past Medical History Past Medical History Have you ever been diagnosed with any of the following: Neurological Problems Seizures: No Cardiology Problems Cardiac Arrhythmia: Yes Congestive Heart Failure: No Cardiomyopathy: No Hypertension: Yes Hypotension: No Respiratory Problems Chronic Obstructive Pulmonary Disease (COPD): No Asthma: No Sleep Apnea: Yes Stomache/Intestinal Problems Gall Bladder Disease: Yes Gastroesophageal Reflux Disease: Yes Genital/Urinary Problems Renal Disease: No Musculoskeletal Problems Arthritis: Yes Degenerative Disk Disease: Yes Scoliosis: Yes Degenerative Joint Disease: Yes Osteomyelitis: Yes Endocrine Problems Diabetes Mellitus Type 1: No Diabetes Mellitus Type 2: No Blood Problems Sickle Cell Disease: No Other Problems Down Syndrome: No Developmental Delay: No Falls: Yes Blood Transfusions: No Blood Transfusion Reaction: No Anesthesia Reactions: No Organ Transplant: No Chicken Pox: Yes Cancer: No Surgical History Thyroidectomy: Yes Subjective Visit Visit for: new patient and knee Immunization / Flu Flu Vaccine in the Last 12 Months: Yes Flu Vaccine Exclusion Criteria: Already Received History of Present Illness Chief complaint: LEFT KNEE PAIN Date of injury / onset of symptoms: 1 YEAR Dmitry is a pleasant 74-year-old male with arthritis. He has had multiple spine surgeries in the past and has chronic back pain. His left knee pain has been bothering him for over 5 years and he reports that he has had over 8 injections with ironic acid and cortisone. He is also tried anti-inflammatories and physical therapy. 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
[2025-04-14 08:59] VITALS: BP 150/96; PULSE 116; RESP 20; TEMP 36.5; O2SAT 95; BMI 31.0
== END 2025-04-14 08:50 | disposition home or self-care (01) ==
LOC: HODSRG 08:23
PROVIDERS: PCP Orthopaedic Surgery; Referring Provider Orthopaedic Surgery; Supervising Provider Orthopaedic Surgery Adult Reconstructive Orthopaedic Surgery; Visit Provider Orthopaedic Surgery Adult Reconstructive Orthopaedic Surgery
DX: M17.12 Unilateral primary osteoarthritis, left knee (principal); M25.562 Pain in left knee
CPT/HCPCS: 99213; G0463

== ENCOUNTER → 2025-05-19 | Outpatient (CLI) | payer MEDICARE, BC, SELFPAY ==
[2025-05-19 12:04] LABS: Glucose Estimated Average 120 mg/dL (80-131); Hemoglobin A1C 5.8 % Hgb (4.8-6.0)
[2025-05-19 12:22] LABS: Alanine Aminotransferase 29 U/L (10-49); Albumin, Serum 4.9 gm/dL (3.4-4.8); Albumin/Globulin Ratio 1.9 (1.2-2.2); Alkaline Phosphatase 69 U/L (46-116); Anion Gap 10 (7-16); Aspartate Amino Transferase 26 U/L (0-34); BUN/Creatinine Ratio 16 Ratio (12-20); Bilirubin,Total 0.9 mg/dL (0.3-1.2); Blood Urea Nitrogen 22 mg/dL (9-23); Calcium 9.6 mg/dL (8.3-10.6); Calcium (Corrected) 9.6 mg/dL (8.5-10.1); Carbon Dioxide 26.6 mMol/L (20.0-31.0); Cardiac Risk Estimate 4.1 RATIO (4.0-6.7); Chloride 105 mMol/L (98-107); Cholesterol 223 mg/dL (132-200); Creatinine (Component) 1.4 mg/dL (0.6-1.3); Globulin 2.6 gm/dL (2.3-3.5); Glucose 112 mg/dL (74-106); HDL Cholesterol 55 mg/dL (40-60); LDL Cholesterol,Calculated 115 mg/dL (0-130); Osmolality,Calculated 287 (275-295); Potassium 4.1 mMol/L (3.4-5.1); Sodium 142 mMol/L (136-145); Total Protein 7.5 gm/dL (5.7-8.2); Triglycerides 265 mg/dL (30-150); eGFR 53 See Note
[2025-05-30 07:05] LABS: Testosterone, Free,Dialysis 44.1 pg/mL (30.0-135.0); Testosterone, Total, Dialysis 358 ng/dL (250-1100)
== END | disposition home or self-care (01) ==
LOC: COPL 10:19
PROVIDERS: PCP Internal Medicine; Referring Provider Internal Medicine; Visit Provider Internal Medicine
DX: E29.1 Testicular hypofunction (principal); N17.9 Acute kidney failure, unspecified; I10 Essential (primary) hypertension; R73.03 Prediabetes
CPT/HCPCS: 36415; 80053; 80061; 83036; 84402; 84403